=== PATIENT | female | born 1970 | race Caucasian/White ===

== ENCOUNTER 2018-04-19 18:10 | Emergency (ER) | payer OTHER ==
[2018-04-19] MEDS ORDERED: ASPIRIN 81 MG TABLET, CHEWABLE PO ONE (18:14)
--- NOTE | 2018-04-19 18:19 | ER Document Report ---
ED General - General Stated Complaint: CHEST PAIN Time Seen by Provider: 04/19/18 18:18 Notes: Patient is a 48-year-old female that presents to the emergency department for chief complaint of chest pain. The patient reports that the pain started today. The currently rate the pain as 0 out of 10, and described as sharp, aching sensation in her mid chest, now resolved. They have had associated shortness of breath and leg swelling. She is also had some episodes of lightheadedness, without syncope, over the last month, seems to be associated with sitting up, and leaving her head back or turning different ways. Denies any nausea, vomiting, diaphoresis. Their risk factors for heart disease include family history, denies any other current medical conditions. Past Medical History: Denies chronic medical conditions Past Surgical History: Breast reduction Social History: Former smoker, quit 17 years ago, denies alcohol or illicit drug use Family History: Father history of CAD in his mid 50s Allergies: Reviewed, see documented allergy list. REVIEW OF SYSTEMS: Other than noted above, the 12 point review of systems was reviewed with the patient and were negative, all pertinent findings are included in the HPI. PHYSICAL EXAMINATION: Vital signs reviewed, nursing noted reviewed. GENERAL: Well-appearing, well-nourished and in no acute distress. HEAD: Atraumatic, normocephalic. EYES: Eyes appear normal, extraocular movements intact, sclera anicteric, conjunctiva are normal. ENT: nares patent, oropharynx clear without exudates. Moist mucous membranes. NECK: Normal range of motion, supple without lymphadenopathy LUNGS: Breath sounds clear to auscultation bilaterally and equal. No wheezes rales or rhonchi. HEART: Regular rate and rhythm without murmurs ABDOMEN: Soft, nontender, normoactive bowel sounds. No rebound, guarding, or rigidity. No masses appreciated. EXTREMITIES: Nontender, good range of motion, no pitting or edema. NEUROLOGICAL: No focal neurological deficits. Moves all extremities spontaneously Motor and sensory grossly intact on exam. PSYCH: Patient is mildly anxious on exam, but appropriate SKIN: Warm, Dry, normal turgor, no rashes or lesions noted on exposed skin TRAVEL OUTSIDE OF THE [place] IN LAST 30 DAYS: No - Related Data Allergies/Adverse Reactions: No Known Allergies Allergy (Unverified 04/19/18 18:43) Past Medical History - Social History Smoking Status: Former Smoker Family History: CAD Physical Exam - Vital signs Vitals: Resp BP Pulse Ox 19 142/96 H 100 04/19/18 18:20 04/19/18 18:20 04/19/18 18:20 Course - Re-evaluation Re-evalutation: Patient seen and examined vital signs reviewed. Laboratory data and imaging were ordered as appropriate for the patient's presenting symptoms and complaint, with consideration of any critical or life threatening conditions that may be associated with their obtained history and exam as noted above. Patient was treated with IV fluids and tylenol, had received 324mg ASA via EMS. Results were reviewed when available and demonstrated patient to be anemic, 7.6 hemoglobin, MCV 66, MCHC 31.2, consistent with iron deficiency anemia which the patient reports a history of, her RDW of 17.5, indicating this is likely chronic , patient states she does have heavy menstrual bleeding, did have an ablation but did not help with this. She has not follow-up with an [facility]. She was taking iron supplements but has not taken them for some time. Troponin negative , chest x-ray and CT angiogram of the chest was negative after a positive d- dimer The patient was re-evaluated and was improved and stable Evaluation was most consistent with mild peripheral edema, chronic iron deficiency anemia, which could be explaining some of the patient's symptoms including her shortness of breath and lightheadedness, there is no indication for blood transfusion at this time, but do recommend iron supplementation and follow-up, I did recommend to the patient to have a repeat troponin, however she wished to be discharged at this time, she is low risk, her heart score is 3 based on risk factors and age, advised to follow-up with a line supply, and OB/ [employer]BUT[employer] as well as her primary care. Which the patient was agreeable to. Results were discussed with the patient at this point, after careful consideration I feel that that patient can be discharged from the emergency department, the patient was educated treatments and reasons to return to the emergency department based on their presumed diagnosis as noted above, they were advised to followup with a primary care physician in 2-3 days. Patient was agreeable to plan of care. *Note is created using voice recognition software and may contain spelling, syntax or grammatical errors. Laboratory 04/19/18 04/19/18 04/19/18 18:15 18:15 18:15 WBC 8.5 RBC 3.73 Hgb 7.6 L Hct 24.4 L MCV 66 L MCH 20.4 L MCHC 31.2 L RDW 17.5 H Plt Count 263 Seg Neutrophils % 73.5 Lymphocytes % 15.4 Monocytes % 6.9 Eosinophils % 3.3 Basophils % 0.9 Absolute Neutrophils 6.2 Absolute Lymphocytes 1.3 Absolute Monocytes 0.6 Absolute Eosinophils 0.3 Absolute Basophils 0.1 D-Dimer Sodium 140.7 Potassium 4.5 Chloride 106 Carbon Dioxide 23 Anion Gap 12 BUN 16 Creatinine 0.67 Est GFR ( Amer) > 60 Est GFR (Non-Af Amer) > 60 Glucose 100 Calcium 9.1 Total Bilirubin 0.4 Direct Bilirubin 0.2 Neonat Total Bilirubin Not Reportable Neonat Direct Bilirubin Not Reportable Neonat Indirect Bili Not Reportable AST 23 ALT 14 Alkaline Phosphatase 75 Creatine Kinase 44 CK-MB (CK-2) 0.31 Troponin I < 0.012 NT-Pro-B Natriuret Pep Total Protein 6.4 Albumin 3.6 04/19/18 04/19/18 18:15 18:15 WBC RBC Hgb Hct MCV MCH MCHC RDW Plt Count Seg Neutrophils % Lymphocytes % Monocytes % Eosinophils % Basophils % Absolute Neutrophils Absolute Lymphocytes Absolute Monocytes Absolute Eosinophils Absolute Basophils D-Dimer 1.05 H Sodium Potassium Chloride Carbon Dioxide Anion Gap BUN Creatinine Est GFR ( Amer) Est GFR (Non-Af Amer) Glucose Calcium Total Bilirubin Direct Bilirubin Neonat Total Bilirubin Neonat Direct Bilirubin Neonat Indirect Bili AST ALT Alkaline Phosphatase Creatine Kinase CK-MB (CK-2) Troponin I NT-Pro-B Natriuret Pep 200 H Total Protein Albumin Chest X-Ray 04/19/18 18:14 IMPRESSION: NO ACUTE RADIOGRAPHIC FINDING IN THE CHEST. Chest/Abdomen CTA 04/19/18 19:05 IMPRESSION: NORMAL CTA OF THE CHEST. NO PULMONARY EMBOLI. - Vital Signs Vital signs: Temp Pulse Resp BP Pulse Ox 98.4 F 20 122/71 100 04/19/18 18:38 04/19/18 20:48 04/19/18 20:48 04/19/18 20:48 - Laboratory Result Diagrams: 04/19/18 18:15 04/19/18 18:15 Laboratory results interpreted by me: 04/19/18 04/19/1804/19/18 18:15 18:15 18:15 Hgb 7.6 L Hct 24.4 L MCV 66 L MCH 20.4 L MCHC 31.2 L RDW 17.5 H D-Dimer 1.05 H NT-Pro-B Natriuret Pep 200 H - EKG Interpretation by Me Additional EKG results interpreted by me: EKG demonstrates sinus rhythm with a ventricular rate of 84 bpm, normal axis, normal intervals, no evidence of acute ischemia on this EKG. Discharge - Discharge Clinical Impression: Chest pain Qualifiers: Chest pain type: unspecified Qualified Code(s): R07.9 - Chest pain, unspecified Anemia Qualifiers: Anemia type: unspecified type Qualified Code(s): D64.9 - Anemia, unspecified Condition: Stable Disposition: HOME, SELF-CARE Instructions: Anemia, Iron Deficiency ([facility]), Chest Pain of Unclear Cause ([facility]) Additional Instructions: Please follow-up with primary care physician, line supply, and [facility], call line supply tomorrow, to schedule stress testing. Recommend taking iron supplementation, as directed and prescribed. If you have a passing out episode , or your symptoms worsen or do not improve, do not hesitate to return to the emergency department. Prescriptions: Ferrous Sulfate 324 mg PO BID #60 tablet. Referrals: LARISA HERRERA MD [COMMUNITY BASED STAFF] - Follow up tomorrow (primary) [facility] [Provider Group] - Follow up in 3-5 days VANDANA ANDERSON MD [EMERITUS] - Follow up tomorrow (cardiology)
--- NOTE | 2018-04-19 18:33 | RADIOLOGY REPORT (SQ) ---
EXAM DESCRIPTION: CHEST SINGLE VIEW COMPLETED DATE/TIME: 04/19/2018 6:23 pm REASON FOR STUDY: chest pain COMPARISON: None. EXAM PARAMETERS: NUMBER OF VIEWS: One view. TECHNIQUE: Single frontal radiographic view of the chest acquired. RADIATION DOSE: NA LIMITATIONS: None. FINDINGS: LUNGS AND PLEURA: No opacities, masses or pneumothorax. No pleural effusion. MEDIASTINUM AND HILAR STRUCTURES: No masses. Contour normal. HEART AND VASCULAR STRUCTURES: Heart normal in size. Normal vasculature. BONES: No acute findings. HARDWARE: None in the chest. OTHER: No other significant finding. IMPRESSION: NO ACUTE RADIOGRAPHIC FINDING IN THE CHEST. TECHNICAL DOCUMENTATION: JOB ID: [id number] [employer]- All Rights Reserved Reading location - IP/workstation name: [email or web address]
[2018-04-19] MEDS ORDERED: NORMAL SALINE 1000 ML 1,000 ML IV ONE (18:49)
[2018-04-19 18:55] LABS: ALANINE AMINOTRANSFERASE 14 U/L (9-52); ALBUMIN 3.6 g/dL (3.5-5.0); ALKALINE PHOSPHATASE 75 U/L (38-126); ANION GAP 12 (5-19); ASPARTATE AMINO TRANSFERASE 23 U/L (14-36); BILIRUBIN,DIRECT 0.2 mg/dL (0.0-0.4); BILIRUBIN,TOTAL 0.4 mg/dL (0.2-1.3); BLOOD UREA NITROGEN 16 mg/dL (7-20); CALCIUM 9.1 mg/dL (8.4-10.2); CARBON DIOXIDE 23 mmol/L (22-30); CHLORIDE 106 mmol/L (98-107); CREATINE KINASE 44 U/L (30-135); GLUCOSE 100 mg/dL (75-110); POTASSIUM 4.5 mmol/L (3.6-5.0); SODIUM 140.7 mmol/L (137-145); TOTAL PROTEIN 6.4 g/dL (6.3-8.2)
[2018-04-19 18:57] LABS: ABSOLUTE BASOPHILS # (AUTO) 0.1 10^3/uL (0.0-0.2); ABSOLUTE EOSINOPHILS # (AUTO) 0.3 10^3/uL (0.0-0.6); ABSOLUTE LYMPHOCYTES (AUTO) 1.3 10^3/uL (0.5-4.7); ABSOLUTE MONOCYTES (AUTO) 0.6 10^3/uL (0.1-1.4); ABSOLUTE NEUT (AUTO) 6.2 10^3/uL (1.7-8.2); BASOPHILS % (AUTO) 0.9 % (0-2); EOSINOPHILS % (AUTO) 3.3 % (0-6); HEMATOCRIT 24.4 % (36.0-47.0); LYMPHOCYTES % (AUTO) 15.4 % (13-45); MEAN CORPUSCULAR HEMOGLOBIN 20.4 pg (27.0-33.4); MEAN CORPUSCULAR HGB CONC 31.2 g/dL (32.0-36.0); MEAN CORPUSCULAR VOLUME 66 fl (80-97); MONOCYTES % (AUTO) 6.9 % (3-13); PLATELET COUNT 263 10^3/uL (150-450); RED BLOOD COUNT 3.73 10^6/uL (3.72-5.28); RED CELL DISTRIBUTION WIDTH 17.5 % (11.5-14.0); SEGMENTED NEUTROPHILS % (AUTO) 73.5 % (42-78); TOTAL CELLS COUNTED % (AUTO) 100 %; WHITE BLOOD COUNT 8.5 10^3/uL (4.0-10.5)
[2018-04-19 19:00] LABS: HEMOGLOBIN 7.6 g/dL (12.0-15.5)
[2018-04-19 19:09] LABS: CREATINE KINASE MB 0.31 ng/mL (<4.55)
[2018-04-19 19:10] LABS: TROPONIN I < 0.012 ng/mL
--- NOTE | 2018-04-19 19:47 | RADIOLOGY REPORT (SQ) ---
EXAM DESCRIPTION: CTA CHEST COMPLETED DATE/TIME: 04/19/2018 7:25 pm REASON FOR STUDY: chest pain, elevated d dimer COMPARISON: None. TECHNIQUE: CT scan of the chest performed using helical scanning technique with dynamic intravenous contrast injection. Images reviewed with lung, soft tissue and bone windows. Reconstructed coronal and sagittal MPR images reviewed. Additional 3 dimensional post-processing performed to develop Maximal Intensity Projection images ([place] P). All images stored on PACS. All CT scanners at this facility use dose modulation, iterative reconstruction, and/or weight based d osing when appropriate to reduce radiation dose to as low as reasonably achievable (ALARA). [facility]: Dose Right [facility]: CareDose [facility]: Dose Right [facility]: Teradose 4D [facility]: [employer] CONTRAST TYPE AND DOSE: contrast/concentration: Isovue 350.00 mg/ml; Total Contrast Delivered: 75.0 ml; Total Saline Delivered: 75.0 ml Contrast bolus adequate for pulmonary arteries and aorta. RENAL FUNCTION: BUN 16 creatinine 0.7 RADIATION DOSE: CT Rad equipment meets quality standard of care and radiation dose reduction techniq ues were employed. CTDIvol: 17.7 - 39.7 mGy. DLP: 606 mGy-cm. . LIMITATIONS: None. FINDINGS: LUNGS AND PLEURA: No masses, infiltrates, or pneumothorax. No pleural effusions or pleura l calcifications. AORTA AND GREAT VESSELS: No aneurysm. No dissection. HEART: No pericardial effusion. No significant coronary artery calcifications. PULMONARY ARTERIES: No emboli visualized in the main pulmonary arteries or the segmental branches. HILAR AND MEDIASTINAL STRUCTURES: No identified masses or abnormal nodes. HARDWARE: None in the chest. UPPER ABDOMEN: No significant findings. Limited exam. THYROID AND OTHER SOFT TISSUES: No masses. No adenopathy. BONES: No acute or significant finding. 3D MIPS: Confirm above findings. OTHER: No other significant finding. IMPRESSION: NORMAL CTA OF THE CHEST. NO PULMONARY EMBOLI. COMMENT: Quality ID # [id number]: Final reports with documentation of one or more dose reduction techniques (e.g., Automated exposure control, adjustment of the mA and/or kV according to patient size, use of iterative reconstruction technique) TECHNICAL DOCUMENTATION: JOB ID: [id number] [employer]- All Rights Reserved Reading location - IP/workstation name: [email or web address]
[2018-04-19] MEDS ORDERED: ACETAMINOPHEN 325 MG TABLET PO ONE (20:06)
[2018-04-19 20:50] VITALS: BP 122/71
--- NOTE | 2018-04-20 07:33 | EKG REPORT ---
SEVERITY:- NORMAL ECG - SINUS RHYTHM : Confirmed by: Davi Finn MD 20-Apr-2018 07:32:36
== END 2018-04-19 21:00 | disposition home or self-care (01) ==
LOC: ER 18:10
DX: R07.9 Chest pain, unspecified (principal); D64.9 Anemia, unspecified; R06.02 Shortness of breath; R79.1 Abnormal coagulation profile; R42 Dizziness and giddiness; M79.89 Other specified soft tissue disorders; Z87.891 Personal history of nicotine dependence; Z82.49 Family history of ischemic heart disease and other diseases of the circulatory system
CPT/HCPCS: 93005; 99285; 36415; 82553; 82550; 85025; 80053; 84484; 85379; 83880; 71045; 71275; 93010; J7030

== ENCOUNTER 2019-05-08 08:42 | Outpatient (CLI) | payer OTHER ==
[~2019-05-08 08:42] MED LIST: FERRIC CARBOXYMALTOSE 750 MG in NORMAL SALINE 250 ML IV PRN
[2019-05-08] MEDS: NORMAL SALINE 250 ML IV PRN ×2 (09:03→09:16)
[2019-05-08 09:41] VITALS: BP 135/60
== END 2019-05-08 10:08 | disposition home or self-care (01) ==
LOC: II 08:42 → 5TH 08:44 → II 10:08
PROVIDERS: ATTEND Obstetrics & Gynecology
PROC: 3E033GC Introduction of Other Therapeutic Substance into Peripheral Vein, Percutaneous Approach (ICD-10-PCS; principal; 2019-05-08)
DX: O99.019 Anemia complicating pregnancy, unspecified trimester (principal)
CPT/HCPCS: 96365; J7050; J1439

== ENCOUNTER 2019-05-15 08:47 | Outpatient (CLI) | payer OTHER ==
[2019-05-15 08:57] VITALS: BP 133/57
[2019-05-15] MEDS ORDERED: NORMAL SALINE 250 ML IV PRN (09:00)
== END 2019-05-15 09:45 | disposition home or self-care (01) ==
LOC: II 08:47 → 5TH 08:49 → II 09:45
PROVIDERS: ATTEND Obstetrics & Gynecology
PROC: 3E033GC Introduction of Other Therapeutic Substance into Peripheral Vein, Percutaneous Approach (ICD-10-PCS; principal; 2019-05-15)
DX: O99.019 Anemia complicating pregnancy, unspecified trimester (principal)
CPT/HCPCS: 96365; J7050; J1439

== ENCOUNTER 2019-08-13 12:39 | Emergency (ER) | payer OTHER ==
[2019-08-13] MEDS ORDERED: KETOROLAC TROMETHAMINE INJ/PF 30 MG/1 ML SDV IV ONE (13:16)
--- NOTE | 2019-08-13 13:16 | ER Document Report ---
ED Medical Screen (RME) - General Chief Complaint: Flank Pain Stated Complaint: BACK PAIN,RIGHT FLANK PAIN Time Seen by Provider: 08/13/19 13:05 Primary Care Provider: JONATHAN MOCTEZUMA PA-C [Primary Care Provider] - Follow up as needed Notes: Patient is a 49-year-old female who presents emergency department with a chief complaint of right flank pain. Patient reports this morning waking up with right flank pain that has been continuous. Denies urinary symptoms. Patient reports that she also feels very bloated but denies specific abdominal pain. Patient reports she did have a hysterectomy 2 months ago. Patient denies nausea, vomiting or diarrhea. Denies fever. TRAVEL OUTSIDE OF THE [place] IN LAST 30 DAYS: No - Related Data Allergies/Adverse Reactions: No Known Allergies Allergy (Verified 08/13/19 13:05) Past Medical History - Past Medical History Cardiac Medical History: Denies: Hx Coronary Artery Disease, Hx Heart Attack, Hx Hypertension Pulmonary Medical History: Denies: Hx Asthma, Hx Bronchitis, Hx COPD, Hx Pneumonia Neurological Medical History: Denies: Hx Cerebrovascular Accident, Hx Seizures Renal/ Medical History: Denies: Hx Peritoneal Dialysis Musculoskeltal Medical History: Denies Hx Arthritis Past Surgical History: Reports: Hx Breast Surgery - reduction, biopsy, Hx Gynecologic Surgery - ablasion Physical Exam - Vital signs Vitals: Temp Pulse Resp BP Pulse Ox 98.0 F 79 20 152/82 H 97 08/13/19 12:48 08/13/19 12:48 08/13/19 12:48 08/13/19 12:48 08/13/19 12:48 Course - Re-evaluation Re-evalutation: 08/13/19 13:15 Right flank pain noted, without obvious CVA tenderness. Will obtain a renal ultrasound as well as basic labs and urinalysis to start. But - Vital Signs Vital signs: Temp Pulse Resp BP Pulse Ox 98.0 F 79 20 152/82 H 97 08/13/19 12:48 08/13/19 12:48 08/13/19 12:48 08/13/19 12:48 08/13/19 12:48 Doctor's Discharge - Discharge Referrals: JONATHAN MOCTEZUMA PA-C [Primary Care Provider] - Follow up as needed
[2019-08-13 13:42] LABS: ABSOLUTE EOSINOPHILS # (AUTO) 0.3 10^3/uL (0.0-0.6); ABSOLUTE LYMPHOCYTES (AUTO) 1.9 10^3/uL (0.5-4.7); ABSOLUTE MONOCYTES (AUTO) 0.7 10^3/uL (0.1-1.4); BASOPHILS % (AUTO) 0.6 % (0-2); EOSINOPHILS % (AUTO) 3.4 % (0-6); HEMATOCRIT 39.9 % (36.0-47.0); HEMOGLOBIN 13.8 g/dL (12.0-15.5); LYMPHOCYTES % (AUTO) 23.9 % (13-45); MEAN CORPUSCULAR HEMOGLOBIN 29.5 pg (27.0-33.4); MEAN CORPUSCULAR HGB CONC 34.7 g/dL (32.0-36.0); MEAN CORPUSCULAR VOLUME 85 fl (80-97); MONOCYTES % (AUTO) 8.3 % (3-13); PLATELET COUNT 195 10^3/uL (150-450); RED CELL DISTRIBUTION WIDTH 14.6 % (11.5-14.0); SEGMENTED NEUTROPHILS % (AUTO) 63.8 % (42-78); TOTAL CELLS COUNTED % (AUTO) 100 %; WHITE BLOOD COUNT 7.8 10^3/uL (4.0-10.5)
[2019-08-13 13:52] LABS: APPEARANCE,URINE SLIGHTLY-CLOUDY; BILIRUBIN,URINE NEGATIVE (NEGATIVE); COLOR,URINE STRAW; GLUCOSE, URINE NEGATIVE (NEGATIVE); KETONES,URINE NEGATIVE (NEGATIVE); LEUKOCYTE ESTERASE,URINE MODERATE (NEGATIVE); NITRITE,URINE NEGATIVE (NEGATIVE); PROTEIN,URINE NEGATIVE (NEGATIVE); UROBILINOGEN,URINE NEGATIVE mg/dL (<2.0)
[2019-08-13 13:56] LABS: ALBUMIN 4.4 g/dL (3.5-5.0); ALKALINE PHOSPHATASE 96 U/L (38-126); ANION GAP 8 (5-19); ASPARTATE AMINO TRANSFERASE 21 U/L (14-36); BILIRUBIN,DIRECT 0.3 mg/dL (0.0-0.4); BILIRUBIN,TOTAL 0.5 mg/dL (0.2-1.3); BLOOD UREA NITROGEN 14 mg/dL (7-20); CALCIUM 9.6 mg/dL (8.4-10.2); CARBON DIOXIDE 28 mmol/L (22-30); CHLORIDE 103 mmol/L (98-107); GLUCOSE 99 mg/dL (75-110); TOTAL PROTEIN 7.2 g/dL (6.3-8.2)
--- NOTE | 2019-08-13 14:31 | ER Document Report ---
ED General - General Chief Complaint: Flank Pain Stated Complaint: BACK PAIN,RIGHT FLANK PAIN Time Seen by Provider: 08/13/19 13:05 Primary Care Provider: JONATHAN MOCTEZUMA PA-C [Primary Care Provider] - Follow up in 3-5 days Notes: 49-year-old female with history of hysterectomy 2 months ago secondary to uterine fibroids presents for right lower quadrant pain and right flank pain. Patient states she had one episode of really sharp right lower quadrant pain yesterday but has since resolved. Patient states this morning she started to have constant right flank pain. Patient states it is worse when she lays back. Patient denies any nausea/vomiting/diarrhea/constipation, fever, chills, urinary symptoms. TRAVEL OUTSIDE OF THE [place] IN LAST 30 DAYS: No - Related Data Allergies/Adverse Reactions: No Known Allergies Allergy (Verified 08/13/19 13:05) Past Medical History - Social History Smoking Status: Former Smoker Family History: CAD Patient has suicidal ideation: No Patient has homicidal ideation: No - Past Medical History Cardiac Medical History: Denies: Hx Coronary Artery Disease, Hx Heart Attack, Hx Hypertension Pulmonary Medical History: Denies: Hx Asthma, Hx Bronchitis, Hx COPD, Hx Pneumonia Neurological Medical History: Denies: Hx Cerebrovascular Accident, Hx Seizures Renal/ Medical History: Denies: Hx Peritoneal Dialysis Musculoskeletal Medical History: Denies Hx Arthritis Past Surgical History: Reports: Hx Breast Surgery - reduction, biopsy, Hx Gynecologic Surgery - ablasion Review of Systems - Review of Systems Notes: Constitutional: Negative for fever. HENT: Negative for sore throat. Eyes: Negative for visual changes. Cardiovascular: Negative for chest pain. Respiratory: Negative for shortness of breath. Gastrointestinal: Positive for right flank pain and abdominal pain. Negative for nausea/vomiting/diarrhea. Genitourinary: Negative for dysuria. Musculoskeletal: Negative for back pain. Skin: Negative for rash. Neurological: Negative for headaches, weakness or numbness. 10 point ROS negative except as marked above and in HPI. Physical Exam - Vital signs Vitals: Temp Pulse Resp BP Pulse Ox 98.0 F 79 20 152/82 H 97 08/13/19 12:48 08/13/19 12:48 08/13/19 12:48 08/13/19 12:48 08/13/19 12:48 - Notes Notes: GENERAL: Well-appearing, well-nourished and in no acute distress. HEAD: Atraumatic, normocephalic. EYES: Extraocular movements intact, sclera anicteric, conjunctiva are normal. NECK: Normal range of motion, supple without lymphadenopathy or JVD. ABDOMEN: Soft, nontender. No guarding, no rebound. No masses appreciated. Mild CVA tenderness on right. EXTREMITIES: Normal range of motion, no pitting or edema. No clubbing or cyanosis. NEUROLOGICAL: Cranial nerves II through XII grossly intact. Normal speech, normal gait. PSYCH: Normal mood, normal affect. SKIN: Warm, Dry, normal turgor, no rashes or lesions noted. Course - Re-evaluation Re-evalutation: 08/13/19 Nontoxic, well appearing 49 y/o female presents for right flank and RLQ pain. No associated symptoms. Abd soft, nontender, mild right CVA tenderness. PE otherwise unremarkble. Denies previous history of kidney stones or kidney infections. Pt still has appendix. Pt had a hysterectomy 2 months ago secondary to fibroids and states she has had decreased sensation to her RLQ/right pelvic area but yesterday she had one episode of really sharp stabbing pain through her RLQ. Pt now has right flank pain that started this morning which has been constant in nature. Labwork shows no leukocytosis and is otherwise unremarkable. CT abdomen/pelvis with IV contrast ordered. Toradol was ordered. 08/13/19 15:59 Pain improved with toradol. Discussed CT results and labwork with pt. Pt also given copy of CT report. Most likely muscular in nature. Pt given prescription for ibuprofen and Flexeril with sedation warning. Pt also given strict return precautions and close follow up with pcp. Pt voices understanding and agrees with plan of care. - Vital Signs Vital signs: Temp Pulse Resp BP Pulse Ox 98.0 F 79 20 152/82 H 97 08/13/19 12:48 08/13/19 12:48 08/13/19 12:48 08/13/19 12:48 08/13/19 12:48 - Laboratory Result Diagrams: 08/13/19 13:23 08/13/19 13:23 Laboratory results interpreted by me: 08/13/19 08/13/19 13:23 13:23 RDW 14.6 H Urine Blood SMALL H Ur Leukocyte Esterase MODERATE H Discharge - Discharge Clinical Impression: Right flank pain Condition: Stable Disposition: HOME, SELF-CARE Instructions: Toradol Injection ([facility]) Additional Instructions: Your CT scan was reassuring. Your lab work was also reassuring. Please take medication as prescribed. Please do not drink or drive while taking Flexeril as it may make you drowsy. Please follow-up with your primary care doctor in 3 to 5 days. Return to ER for any worsening symptoms, including abdominal pain, nausea/vomiting, diarrhea, constipation, fever, worsening right flank pain, chest pain, shortness of breath, or any other symptoms that are concerning to you. Prescriptions: Cyclobenzaprine HCl [Flexeril 10 mg Tablet] 10 mg PO TIDP PRN #15 tab PRN Reason: Ibuprofen [Motrin 800 mg Tablet] 800 mg PO Q8H PRN #30 tab PRN Reason: Referrals: JONATHAN MOCTEZUMA PA-C [Primary Care Provider] - Follow up in 3-5 days
--- NOTE | 2019-08-13 15:39 | RADIOLOGY REPORT (SQ) ---
EXAM DESCRIPTION: CT ABD/PELVIS WITH IV ONLY COMPLETED DATE/TIME: 08/13/2019 3:10 pm REASON FOR STUDY: RLQ pain, right flank pain COMPARISON: None. TECHNIQUE: CT scan of the abdomen and pelvis performed using helical scanning technique with dynamic intravenous contrast injection. No oral contrast. Images reviewed with lung, soft tissue, and bone windows. Reconstructed coronal and sagittal MPR images reviewed. Delayed images for evaluation of the urinary system also acquired. All images stored on PACS. All CT scanners at this facility use dose modulation, iterative reconstruction, and/or weight based d osing when appropriate to reduce radiation dose to as low as reasonably achievable (ALARA). [facility]: Dose Right [facility]: CareDose [facility]: Dose Right [facility]: Teradose 4D [facility]: [employer] CONTRAST TYPE AND DOSE: Contrast/concentration: Isovue 350.00 mg/ml; Total Contrast Delivered: 100.0 ml; Total Saline Delivered: 72.0 ml RENAL FUNCTION: GFR > 60. RADIATION DOSE: CT Rad equipment meets quality standard of care and radiation dose reduction techniq ues were employed. CTDIvol: 12.5 - 16.4 mGy. DLP: 1624 mGy-cm. LIMITATIONS: None. FINDINGS: LOWER CHEST: No acute findings. LIVER: The morphology of the liver is non cirrhotic. There is an ovoid hypodense structure adjacent to the gallbladder fossa, within segment 5 of the liver, (image 33 of series 5) that could represent a hepatic cyst. The portal veins are patent. SPLEEN: No splenomegaly or splenic mass. PANCREAS: No acute abnormality. GALLBLADDER: No abnormality that is apparent on CT. ADRENAL GLANDS: No mass or asymmetry. RIGHT KIDNEY AND URETER: No solid masses. No calcifications. No hydronephrosis or hydroureter. LEFT KIDNEY AND URETER: No solid masses. No calcifications. No hydronephrosis or hydroureter. AORTA AND VESSELS: No aneurysm or dissection of the abdominal aorta. RETROPERITONEUM: No retroperitoneal adenopathy, hemorrhage or mass. BOWEL AND PERITONEAL CAVITY: No bowel obstruction, bowel wall thickening or pericolonic/ perienteric inflammation. No mesenteric adenopathy, free intraperitoneal fluid or mesenteric/ omental inflammati on. APPENDIX: Normal. PELVIS: The uterus is surgically absent. The urinary bladder is partially distended. ABDOMINAL WALL: No masses or hernias. BONES: No acute findings. OTHER: No other finding. IMPRESSION: No acute intra-abdominal abnormality. TECHNICAL DOCUMENTATION: JOB ID: [id number] Quality ID # [id number]: Final reports with documentation of one or more dose reduction techniques (e.g., Au tomated exposure control, adjustment of the mA and/or kV according to patient size, use of iterative reconstruction technique) 2010 [employer]- All Rights Reserved Reading location - IP/workstation name: [email or web address]
[2019-08-13 16:16] VITALS: BP 153/79
== END 2019-08-13 16:16 | disposition home or self-care (01) ==
LOC: ER 12:39
DX: R10.31 Right lower quadrant pain (principal); Z90.710 Acquired absence of both cervix and uterus
CPT/HCPCS: 99284; 36415; 87086; 85025; 80053; 81001; 74177; J1885